=== PATIENT | female | born 1995 | race American Indian/Alaskan Native ===

== ENCOUNTER 2017-10-11 21:33 | Emergency (ER) | payer BC ==
[2017-10-11 21:58] VITALS: BP 136/81; PULSE 94; RESP 18; TEMP 98.8; O2SAT 99
--- NOTE | 2017-10-11 23:48 | ED PDOC ---
HPI: Eye Injury/Pain Time Seen by Provider: 10/11/17 23:46 Chief Complaint (Nursing): Eye Problem Chief Complaint (Provider): EYE INJURY History Per: Patient (22 Y/O FEMALE HERE WITH LEFT EYE PAIN X 1 DAY. 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 CONCERNED THAT SHE MAY HAVE A FOREIGN BODY IN EYE. ABLE TO SEE OUT OF LEFT EYE BUT BLURRY.) Past Medical History Reviewed: Historical Data, Nursing Documentation, Vital Signs Vital Signs: Last Vital Signs Temp 98.8 F 10/11/17 21:56 Pulse 94 H 10/11/17 21:56 Resp 18 10/11/17 21:56 BP 136/81 10/11/17 21:56 Pulse Ox 99 10/11/17 21:56 - Family History Family History: States: No Known Family Hx - Home Medications Home Medications: Ambulatory Orders Medication Instructions Recorded Ciprofloxacin 0.3% [Ciloxan 0.3% 1 drop LE[facility]YE QID [facility] - Allergies Allergies/Adverse Reactions: Allergies Allergy/AdvReac Type Severity Reaction Status Date / Time red dye Allergy ANGIOEDEMA Verified 10/11/17 21:55 Review of Systems ROS Statement: Except As Marked, All Systems Reviewed And Found Negative Eyes: Positive for: Pain, Vision Change Physical Exam - Reviewed Nursing Documentation Reviewed: Yes Vital Signs Reviewed: Yes (VISUAL ACUITY L 20/50;R 20/50 BILAT 20/50) - Physical Exam Appears: Positive for: Well, Non-toxic, No Acute Distress Head Exam: Positive for: ATRAUMATIC, NORMAL INSPECTION, NORMOCEPHALIC Skin: Positive for: Normal Color, Warm, DRY Eye Exam: Positive for: EOMI, PERRL, Conjunctival injection, Other (FLUORESCEIN UPTAKE LEFT EYE NOTED). Negative for: Normal appearance ENT: Positive for: Normal ENT Inspection Neck: Positive for: Normal, Painless ROM Cardiovascular/Chest: Positive for: Regular Rate, Rhythm Respiratory: Positive for: CNT, Normal Breath Sounds Gastrointestinal/Abdominal: Positive for: Normal Exam, Bowel Sounds, Soft Back: Positive for: Normal Inspection Extremity: Positive for: Normal ROM Neurologic/Psych: Positive for: Alert, Oriented - ECG O2 Sat by Pulse Oximetry: 99 Disposition - Clinical Impression Clinical Impression: Corneal injury - Patient ED Disposition Is Patient to be Admitted: No - Disposition Referrals: Sesar Scott MD [Staff Provider] - Disposition: Routine/Home Disposition Time: 23:49 Condition: FAIR Additional Instructions: F/U TOMORROW WITH OPTHALMOLOGIST FOR EVALUATION OF POSSIBLE CORNEAL ULCER Prescriptions: Ciprofloxacin 0.3% [Ciloxan 0.3% Ophth SOLN] 1 drop LEFTEYE QID #1 bottle Instructions: Corneal Ulcer (ED) Forms: [facility] (Arabic), [facility] ED School/Work Excuse
== END 2017-10-12 00:09 | disposition home or self-care (01) ==
LOC: H.ER 21:33
DX: H16.042 Marginal corneal ulcer, left eye (principal)